=== PATIENT | female | born 1975 | race Caucasian/White ===

== ENCOUNTER 2021-08-16 14:02 | Outpatient (CLI) | payer OTHER, SELFPAY ==
--- NOTE | 2021-08-16 14:15 | MM_ITS ---
WS: [id number] SCREENING DIGITAL MAMMOGRAM WITH CAD HISTORY: SCREENING COMPARISON: None available. Bilateral CC and MLO views submitted. Computer aided detection analyzed. Breast composition: There are scattered areas of fibroglandular density. Areas of increased density o n the lateral projections along the posterior inferior breast. Slightly greater asymmetry on the RIGH T. MM/[place] [id number] IMPRESSION: BI-RADS: 0-Incomplete: Need additional imaging evaluation FOLLOW UP: Need Additional Imaging RIGHT breast: Spot compression views (MLO). True ML. Ultrasound to follow if ab normality persists. LEFT breast: Spot compression views (MLO). True ML. Ultrasound to follow if abn ormality persists.
== END 2021-08-16 14:03 | disposition home or self-care (01) ==
PROVIDERS: Visit Provider Obstetrics & Gynecology
DX: Z12.31 Encounter for screening mammogram for malignant neoplasm of breast (principal)
CPT/HCPCS: 77067

== ENCOUNTER 2021-10-20 12:43 | Outpatient (CLI) | payer OTHER, SELFPAY ==
--- NOTE | 2021-10-20 13:06 | US_ITS ---
WS: [id number] ADDITIONAL VIEWS BILATERAL MAMMOGRAM AND BILATERAL BREAST ULTRASOUND ADDITIONAL VIEWS BILATERAL MAMMOGRAM HISTORY: ABNORMAL MAMMOGRAM COMPARISON: 08/16/2021 Asymmetry is within the inferior breast become less apparent with compression views. There is no dist ortion of the soft tissues. There is a partially obscured nodule measuring 5 mm in the inferior RIGHT breast which is not definitely seen on the CC projection. BREAST ULTRASOUND RIGHT breast: Hypoechoic well-circumscribed nodule at 9:00, subareolar measures 4 x 4 by 3 mm. Additi onal hypoechoic nodule which is probably a cyst at 6:00, 1 cm from the nipple measures 3 x 3 x 4 mm. Additional hypoechoic nodule at 5:00, 2 cm from the nipple measures 6 x 4.4 mm. LEFT breast: Hypoechoic ovoid nodule at 6:00 measures 4 x 3 x 6 mm. Small cyst at 3:00, 2 cm the nipp le. US/US breast BI limited* [id number] IMPRESSION: BI-RADS: 3-Probably Benign FOLLOW UP: 6 Month Follow-up RIGHT breast ultrasound follow-up recommended in 6 months. There are multiple s mall, subcentimeter hypoechoic nodules. These are probably cysts. Due to their multiplicity these are likely benign. Recommend six-month follow-up.
== END 2021-10-20 12:44 | disposition home or self-care (01) ==
PROVIDERS: Visit Provider Nurse Practitioner Family
DX: R92.8 Other abnormal and inconclusive findings on diagnostic imaging of breast (principal)
CPT/HCPCS: 76642; 77066

== ENCOUNTER 2022-10-10 10:12 | Outpatient (CLI) | payer OTHER, SELFPAY ==
--- NOTE | 2022-10-10 10:26 | MM_ITS ---
WS: [id number] DIAGNOSTIC BILATERAL DIGITAL BREAST TOMOSYNTHESIS MAMMOGRAPHY WITH CAD HISTORY: Follow-up breast asymmetries. COMPARISON: 08/16/2021, 10/20/2021 TECHNIQUE: Bilateral craniocaudad, mediolateral oblique, and mediolateral views are submitted with to mosynthesis and SM. Spot compression bilateral MLO. Computer aided detection utilized. Breast composition: The breasts are heterogeneously dense, which may obscure small masses. The asymme tries and nodules previously described have decreased in size or resolved. Benign calcifications in e ach breast. Decrease in the fibroglandular densities. MM/[place] [id number] IMPRESSION: BI-RADS: 2-Benign FOLLOW UP: 1 Year Follow-up
== END 2022-10-10 10:13 | disposition home or self-care (01) ==
PROVIDERS: PCP Physician Assistant; Visit Provider Physician Assistant
DX: N64.89 Other specified disorders of breast (principal)
CPT/HCPCS: 77062; G0279